=== PATIENT | female | born 1935 | race Caucasian/White ===

== ENCOUNTER 2016-07-22 18:31 | Emergency (ER) | payer OTHER, BC ==
[~2016-07-22] VITALS: Ht 170.2 cm; Wt 45.0 kg
[~2016-07-22 18:31] MED LIST: ADULT LOW DOSE81 M1 PO; CALCIUM600 MG PO; CARBIDOPA/LEVO1 EACH PO; CELEBREX100 MG PO; CELEBREX50 MG PO; DOXYCYCLINE HY100 M3 PO; FAMOTIDINE20 MG PO; HEPARIN SO5000 UNITS SC; HYDROCODON-ACE1 EAC7 PO; KEFLEX500 MG PO; LIDODERM 5% P1 PATCH TD; MIRALAX17 GM PO; MIRAPEX0.5 MG PO; MIRAPEX1 MG PO; MULTIVITAMIN W1 EACH PO; PERCOCET 5/31 TABLET PO; POLYETHYLENE GL17 GM PO; REQUIP0.5 MG PO; ROPINIROLE HCL0.5 MG PO; SENNA S TABLET1 EACH PO; SINEMET; SINEMET 10-1001 EACH PO; SINEMET 25-1001 EACH PO; SINEMET CR 25-1 EACH PO; TYLENOL EXTRA500 MG PO; TYLENOL REGULA325 MG PO; VITAMIN D1000 UNIT PO; VITAMIN D2000 UNIT PO; VITAMIN D31000 UNIT PO; VITAMIN D3400 UNI1 PO; ZANTAC150 MG PO
[2016-07-22 19:53] LABS: BASOPHIL COUNT 0.1 K/uL (0-0.1); EOSINOPHIL (%) 1.7 % (0-5); EOSINOPHIL COUNT 0.2 K/uL (0-0.3); HEMATOCRIT 45.4 % (36.0-46.0); IMMATURE GRANULOCYTE (%) 0.4 % (0.0-0.7); LYMPHOCYTE COUNT 1.1 K/uL (1.0-2.8); MCH 29.1 PG (29.0-34.0); MCHC 31.9 G/DL (30.0-36.0); MEAN PLAT.VOLUME 9.4 uM^3 (9.5-12.4); MONOCYTE (%) 6.9 % (3-12); MONOCYTE COUNT 0.7 K/uL (0-0.8); NEUTROPHIL (%) 79.6 % (45-76); PLATELET COUNT 265 K/uL (156-360); RBC DIS.WIDTH-CV 13.2 % (11.8-14.6); RBC DIS.WIDTH-SD 44.6 % (39-53); RED BLOOD COUNT 4.99 M/uL (3.80-5.20); WHITE BLOOD COUNT 10.1 K/uL (4.1-10.2)
[2016-07-22 20:01] LABS: CHLORIDE 104 mEq/L (99-109); POTASSIUM 4.4 mEq/L (3.7-5.4); SODIUM 138 mEq/L (136-147)
[2016-07-22 20:03] LABS: GLUCOSE 97 mg/dL (70-99)
[2016-07-22 20:04] LABS: ANION GAP 7 MEQ/L (2-14)
[2016-07-22 20:05] LABS: TOTAL BILIRUBIN 0.3 mg/dL (0.0-1.0)
[2016-07-22 20:06] LABS: ALKALINE PHOSPHATASE 108 IU/L (3-129)
[2016-07-22 20:07] LABS: GFR ESTIMATE (CALCULATED) > 59 mL/min/
[2016-07-22 20:08] LABS: UREA NITROGEN (BUN) 20 mg/dL (9-23)
[2016-07-22 20:15] LABS: TROP-I INTERPRETATION NEGATIVE; TROPONIN-I < 0.01 ng/mL (0.0-0.30)
[2016-07-22 20:27] LABS: ADD MIUA? YES; BILIRUBIN NEGATIVE; BLOOD NEGATIVE; COLOR STRAW ((YELLOW)); GLUCOSE (STRIP) NEGATIVE; KETONES NEGATIVE; LEUKOCYTES SMALL; NITRITE NEGATIVE; PROTEIN (STRIP) NEGATIVE; UROBILINOGEN 0.2 MG/DL (0.2-1.0)
[2016-07-22 20:42] LABS: BACTERIA RARE /HPF; EPITHELIAL CELLS RARE /HPF; MUCUS NONE SEEN /LPF; RED BLOOD CELLS 0-5 /HPF (0-5); UCUL ADDED? NO
[2016-07-22] MEDS ORDERED: ATENOLOL25 MG PO (22:41)
[2016-07-22] MEDS ORDERED: CELECOXIB100 MG PO (22:42)
[2016-07-22] MEDS ORDERED: CARBIDOPA/LEVO1 EACH PO ×2 (22:43)
[2016-07-22] MEDS ORDERED: REQUIP0.5 MG PO (22:44)
[2016-07-22] MEDS ORDERED: POLYETHYLENE GL17 GM PO (22:44)
[2016-07-22] MEDS ORDERED: ZANTAC150 MG PO (22:45)
[2016-07-22] MEDS ORDERED: VITAMIN D31000 UNI2 PO (22:45)
[2016-07-22] MEDS ORDERED: NORCO 5/3251 TABLET PO (23:58)
[2016-07-23 00:36] VITALS: BP 145/77
== END 2016-07-23 00:37 | disposition home or self-care (01) ==
LOC: EME → EDBD 18:31 → EME 18:31
PROVIDERS: Emergency Medicine
DX: S12.600A Unspecified displaced fracture of seventh cervical vertebra, initial encounter for closed fracture (principal); S12.501A Unspecified nondisplaced fracture of sixth cervical vertebra, initial encounter for closed fracture; S22.42XA Multiple fractures of ribs, left side, initial encounter for closed fracture; S00.83XA Contusion of other part of head, initial encounter; S32.019A Unspecified fracture of first lumbar vertebra, initial encounter for closed fracture; S22.089A Unspecified fracture of T11-T12 vertebra, initial encounter for closed fracture; S61.512A Laceration without foreign body of left wrist, initial encounter; W01.0XXA Fall on same level from slipping, tripping and stumbling without subsequent striking against object, initial encounter; R07.89 Other chest pain; J34.2 Deviated nasal septum; Z91.81 History of falling; G20 Parkinson's disease; M85.89 Other specified disorders of bone density and structure, multiple sites; Z87.891 Personal history of nicotine dependence
CPT/HCPCS: 70450; 70486; 71250; 72125; 73100; 74176; 80053; 81003; 84484; 85025; 87086; 93005; 99281; 99285